=== PATIENT | female | born 1955 | race Caucasian/White ===

== ENCOUNTER → 2022-10-09 | Outpatient (CLI) | payer OTHER ==
--- NOTE | 2022-10-09 12:05 | CT ---
EXAMINATION TYPE: CT brain wo con, CT facial bones wo con CT DLP: combined DLP 1750.80 (accession [id number]), combined DLP 1750.80. (accession [id number]) mGycm, Automated exposure control for dose reduction was used. DATE OF EXAM: 10/09/2022 11:52 AM COMPARISON: None. CLINICAL INDICATION:Female, 67 years old with history of S00.83XA S60.222A, fall/ facial injury today . TECHNIQUE: Axial CT images of the brain and facial structures were obtained with coronal and sagittal reformats created and reviewed. Contrast used: None. Oral contrast used: None. FINDINGS: Brain: Extra-axial spaces: No abnormal extra-axial fluid collections. Ventricular system: Within normal limits Cerebral parenchyma: No acute intraparenchymal hemorrhage or mass effect. The baxter-white junction is well differentiated. Cerebellum: Unremarkable. Mass effect: No evidence of midline shift. Intracranial vasculature: unremarkable Soft tissues: Right frontal scalp hematoma/edema. Calvarium/osseous structures: No depressed skull fracture. Paranasal sinuses and mastoid air cells: Mild scattered paranasal sinus disease. Visualized orbits: Orbital contents are intact. Facial: There is no evidence of fracture, subluxation, or 4dislocation. The orbital contents are unremarkable .The temporal-mandibular joints appear symmetric. The visualized portion of the paranasal sinuses ced ear clear. Right frontal scalp hematoma/edema. IMPRESSION: 1. No acute intracranial process. 2. Right frontal scalp hematoma/edema. 3. No facial fracture.
--- NOTE | 2022-10-09 12:18 | XR ---
EXAMINATION TYPE: XR hand complete LT DATE OF EXAM: 10/09/2022 11:48 AM INDICATION: Patient age:Female; 67 years old; Reason for study: S00.83XA S60.222A fall/injury at work COMPARISON: None TECHNIQUE: Frontal, lateral and oblique views of the left hand were obtained. FINDINGS: Normal alignment of the visualized joints. No acute osseous pathology is identified. No e vidence of soft tissue swelling. IMPRESSION: No acute osseous pathology.
--- NOTE | 2022-10-09 12:19 | XR ---
EXAMINATION TYPE: XR knee complete RT DATE OF EXAM: 10/09/2022 11:48 AM INDICATION: Patient age:Female; 67 years old; Reason for study: S00.83XA S60.222A work injury fall; COMPARISON: None. TECHNIQUE: The Right knee(s) was examined in Frontal, lateral and oblique projections. FINDINGS: No evidence of any acute osseous pathology, soft tissue swelling, or joint effusion is no zhou. Joint spaces are preserved. No significant degeneration changes of the knee. IMPRESSION: No acute osseous pathology.
== END | disposition home or self-care (01) ==
LOC: RADCTMAIN 11:02
PROVIDERS: ATTEND Emergency Medicine
DX: S00.83XA Contusion of other part of head, initial encounter (principal); S60.222A Contusion of left hand, initial encounter; S80.01XA Contusion of right knee, initial encounter
CPT/HCPCS: 70450; 70486

== ENCOUNTER 2022-10-14 00:53 | Emergency (ER) | payer MEDICARE, OTHER ==
[2022-10-14 01:02] VITALS: BP 180/94; PULSE 70; RESP 18; TEMP 98.1
[2022-10-14] MEDS ORDERED: IBUPROFEN 800 MG TAB PO STA (04:20)
[2022-10-14] MEDS ORDERED: Acetaminophen-Codeine 300-30mg TAB PO STA (04:20)
--- NOTE | 2022-10-14 04:39 | ED ---
Recheck HPI - General Chief Complaint: Fall Stated Complaint: POST HEAD INJURY Time Seen by Provider: 10/14/22 04:20 Source: patient Mode of arrival: ambulatory - Related Data Allergies Allergy/AdvReac Type Severity Reaction Status Date / Time clarithromycin [From Biaxin] AdvReac Rash/Hives Verified 10/14/22 01:02 Review of Systems ROS Statement: Those systems with pertinent positive or pertinent negative responses have been documented in the HPI. ROS Other: All systems not noted in ROS Statement are negative. Past Medical History Past Medical History: Unable to Obtain History of Any Multi-Drug Resistant Organisms: None Reported Past Surgical History: Unable to Obtain Past Psychological History: No Psychological Hx Reported Smoking Status: Never smoker Past Alcohol Use History: Rare Past Drug Use History: None Reported Course Vital Signs 10/14/22 00:58 Temperature 98.1 F Pulse Rate 70 Respiratory 18 Rate Blood Pressure 180/94 O2 Sat by Pulse 99 Oximetry Disposition Clinical Impression: Fall, Right eye injury Disposition: HOME SELF-CARE Condition: Good Instructions (If sedation given, give patient instructions): Fall Prevention for Older Adults (ED) Is patient prescribed a controlled substance at d/c from ED?: No Referrals: None,Stated [Primary Care Provider] - 1-2 days Time of Disposition: 06:40
[2022-10-14] MEDS ORDERED: traMADol 50 MG STARTER PACK 3 TAB BTL PO STA (06:35)
[2022-10-14] MEDS ORDERED: ACET/COD 300 MG/30 MG STARTER PACK 6 TAB BTL PO STA (06:35)
[2022-10-14] MEDS ORDERED: IBUPROFEN 600 MG STARTER PACK 4 TAB BTL PO STA (06:35)
[2022-10-14] MEDS ORDERED: ONDANSETRON 4 MG ODT STARTER PACK 2 TAB BTL PO STA (06:53)
[2022-10-14] MEDS ORDERED: ONDANSETRON ODT 4 MG TAB PO STA (06:53)
== END 2022-10-14 10:44 | disposition home or self-care (01) ==
LOC: EC 00:53
DX: S05.91XA Unspecified injury of right eye and orbit, initial encounter (principal); Z88.1 Allergy status to other antibiotic agents; W19.XXXA Unspecified fall, initial encounter
CPT/HCPCS: 99283; S0119